=== PATIENT | female | born 1970 | race Caucasian/White ===

== ENCOUNTER 2022-10-02 14:39 | Outpatient (CLI) | payer OTHER, SELFPAY ==
--- NOTE | 2022-10-02 14:52 | MM_ITS ---
WS: [id number] BILATERAL 3D TOMOSYNTHESIS DIGITAL SCREENING MAMMOGRAPHY WITH CAD CLINICAL INFORMATION: SCREENING HISTORY: Screening mammogram. Chronic LEFT breast lump. COMPARISON: Jan 29 2021 TECHNIQUE: Bilateral CC and MLO views. FINDINGS: Scattered fibroglandular densities bilaterally. No suspicious focal mass, asymmetry, calcifications, or architectural distortion. No evidence of malignancy. Stable 6 mm small ovoid nodule posterior LEFT breast unchanged from previous likely small intramammary lymph node or small cyst. MM/[id number] IMPRESSION: BI-RADS: 2-Benign FOLLOW UP: 1 Year Follow-up Recommend return to annual screening mammography.
== END 2022-10-02 14:40 | disposition home or self-care (01) ==
LOC: RAD 14:40
PROVIDERS: PCP Family Medicine; Visit Provider Family Medicine
DX: Z12.31 Encounter for screening mammogram for malignant neoplasm of breast (principal)
CPT/HCPCS: 77063; 77067